=== PATIENT | female | born 1985 | race Caucasian/White ===

== ENCOUNTER 2017-02-04 19:40 | Emergency (ER) | payer SELFPAY ==
[~2017-02-04] VITALS: Ht 157.5 cm; Wt 81.6 kg
--- NOTE | 2017-02-04 20:41 | Urgent Treatment Center Report ---
History of Present Issue Date/Time Seen by Provider 02/04/172030 Visit Reason Pt arrived:Walked Presenting Problem:PT C/O PAIN IN RT SIDE OF NECK AFTER TURNING HER HEAD TOO QUICKLY AND HEARING A "POP" SOUND Location if Accident: Onset of symptoms date/time:/ or onset unknown for:MEDICAL HX UNKNOWN Have you (or family members/close friends) recently traveled outside the [place]? N If Yes, where/when: Have you had exposure to infectious disease within the past month? TB? Other? Specify: Patient state that she has history of neck and shoulder pain, State that her daughter fell on Tuesday and she turned her head quickly and she felt a "pop" states that she has felt tight in her shoulders and neck ever since States that she has been having muscle spasms and thought she better come in tonight and get checked ALLERGIES Coded Allergies: Penicillins (Mild, 02/04/17) History Medical History General CAD? No Angina: No ME: No Hypertension? No Hyperlipidemia? No CHF? No DVT? No PE? No COPD? No Asthma? No Anemia? No GERD? No Gastric ulcers? No GI Bleed? No Hernia? No Thyroid Problems? No Hypothyroidism? No CVA? No Seizures? No Diabetes? No Renal Insuffiency? No UTI? No Stones? No BPH? No GB Disease: No Nephritic Syndrome? No Asplenia? No Hepatitis? No Sickle Cell Disease? No Arthritis? No Migraines? No Cataracts? No Glaucoma? No MRSA? No HIV? No TB? No Anxiety? No Depression? No Cancer? No More? No Immunization HX DT/Tetanus Unknown Surgical Hx Previous Surgery?N Social History Smoking Hx Smoker: Never Smoker Tobacco: No Review of Systems All Other Systems Reviewed and Negative Musculoskeletal muscle pain, muscle stiffness, neck pain Physical Exam Vital Signs Vital Signs Date Time Temp Pulse Resp B/P Pulse O2 O2 Flow FiO2 Ox Delivery Rate 02/04 2046 18 02/05 2016 98.2 76 18 135/89 99 General Appearance normal appearance, WD/WN Respiratory Status Yes: trachea midline, chest symmetrical, non tender chest. No: respiratory distress. Lung Sounds bilateral: normal breath sounds, lungs clear. Cardiovascular normal exam, regular rate/rhythm Back muscle spasm, Pain and muscle spasm felt in upper shoulder area, has history of back problems State that she turned her head quickly on Tuesday and now having pain and stiffness in neck Neurologic alert, normal exam, oriented x 3 Medical Decision Making LABS/Meds/Orders Pt receiving controlled substance in ED? No Results/Orders Current Medication Orders Sig/Dominga Start time Last Medication Dose Route Stop Time Status Admin Ketorolac 60 MG ONCE ONE 02/04 2045 DC 02/04 Tromethamine IM 02/04 Ketorolac 0 .STK-MED ONE 02/04 2041 DC Tromethamine .ROUTE Progress [facility] Progress Notes 1 Comment Denies chance of [facility] Progress Notes 2 Comment Patient state that she does not want to wait for xray that felt like it was more muscle related. Patient aware of risks and benefits and still choose to not do xray Departure Departure Disposition DC Home or Self Care(routine) Clinical Impression Primary Impression: Muscle strain Secondary Impressions: Muscle spasm Condition STABLE Referrals Elda CUNNINGHAM,Nasir (Family): 3 Days-Call Office Patient Instructions DI for Muscle Spasm, DI for Muscle Strain, DI for Neck Pain Additional Instructions Take medication as prescribed Follow up with family doctor if pain persists Return if needed If you began to have numbness in the extremitities difficulty urinating or bowel go straight to the ER Discharge Counseling Counseled pt/family regarding diagnosis, medications/RX, home care, follow up needs Prescriptions Current Visit Scripts Ibuprofen (Ibuprofen 800MG) 800 MG PO QIDP PRN pain #30 TAB Cyclobenzaprine Hcl (Flexeril) 10 MG PO TID #15 TAB at 2058
--- NOTE | 2017-02-04 20:41 | Urgent Treatment Center Report ---
History of Present Issue Date/Time Seen by Provider 02/04/172030 Visit Reason Pt arrived:Walked Presenting Problem:PT C/O PAIN IN RT SIDE OF NECK AFTER TURNING HER HEAD TOO QUICKLY AND HEARING A "POP" SOUND Location if Accident: Onset of symptoms date/time:/ or onset unknown for:MEDICAL HX UNKNOWN Have you (or family members/close friends) recently traveled outside the [place]? N If Yes, where/when: Have you had exposure to infectious disease within the past month? TB? Other? Specify: Patient state that she has history of neck and shoulder pain, State that her daughter fell on Tuesday and she turned her head quickly and she felt a "pop" states that she has felt tight in her shoulders and neck ever since States that she has been having muscle spasms and thought she better come in tonight and get checked ALLERGIES Coded Allergies: Penicillins (Mild, 02/04/17) History Medical History General CAD? No Angina: No NC: No Hypertension? No Hyperlipidemia? No CHF? No DVT? No PE? No COPD? No Asthma? No Anemia? No GERD? No Gastric ulcers? No GI Bleed? No Hernia? No Thyroid Problems? No Hypothyroidism? No CVA? No Seizures? No Diabetes? No Renal Insuffiency? No UTI? No Stones? No BPH? No GB Disease: No Nephritic Syndrome? No Asplenia? No Hepatitis? No Sickle Cell Disease? No Arthritis? No Migraines? No Cataracts? No Glaucoma? No MRSA? No HIV? No TB? No Anxiety? No Depression? No Cancer? No More? No Immunization HX DT/Tetanus Unknown Surgical Hx Previous Surgery?N Social History Smoking Hx Smoker: Never Smoker Tobacco: No Review of Systems All Other Systems Reviewed and Negative Musculoskeletal muscle pain, muscle stiffness, neck pain Physical Exam Vital Signs Vital Signs Date Time Temp Pulse Resp B/P Pulse O2 O2 Flow FiO2 Ox Delivery Rate 02/04 2046 18 02/05 2016 98.2 76 18 135/89 99 General Appearance normal appearance, WD/WN Respiratory Status Yes: trachea midline, chest symmetrical, non tender chest. No: respiratory distress. Lung Sounds bilateral: normal breath sounds, lungs clear. Cardiovascular normal exam, regular rate/rhythm Back muscle spasm, Pain and muscle spasm felt in upper shoulder area, has history of back problems State that she turned her head quickly on Tuesday and now having pain and stiffness in neck Neurologic alert, normal exam, oriented x 3 Medical Decision Making LABS/Meds/Orders Pt receiving controlled substance in ED? No Results/Orders Current Medication Orders Sig/Dominga Start time Last Medication Dose Route Stop Time Status Admin Ketorolac 60 MG ONCE ONE 02/04 2045 DC 02/04 Tromethamine IM 02/04 Ketorolac 0 .STK-MED ONE 02/04 2041 DC Tromethamine .ROUTE Progress [facility] Progress Notes 1 Comment Denies chance of [facility] Progress Notes 2 Comment Patient state that she does not want to wait for xray that felt like it was more muscle related. Patient aware of risks and benefits and still choose to not do xray Departure Departure Disposition DC Home or Self Care(routine) Clinical Impression Primary Impression: Muscle strain Secondary Impressions: Muscle spasm Condition STABLE Referrals Elda CUNNINGHAM,Nasir (Family): 3 Days-Call Office Patient Instructions DI for Muscle Spasm, DI for Muscle Strain, DI for Neck Pain Additional Instructions Take medication as prescribed Follow up with family doctor if pain persists Return if needed If you began to have numbness in the extremitities difficulty urinating or bowel go straight to the ER Discharge Counseling Counseled pt/family regarding diagnosis, medications/RX, home care, follow up needs Prescriptions Current Visit Scripts Ibuprofen (Ibuprofen 800MG) 800 MG PO QIDP PRN pain #30 TAB Cyclobenzaprine Hcl (Flexeril) 10 MG PO TID #15 TAB at 2058
[2017-02-04 21:51] VITALS: BP 135/89
== END 2017-02-04 21:51 | disposition home or self-care (01) ==
LOC: UTC 19:40
DX: S16.1XXA Strain of muscle, fascia and tendon at neck level, initial encounter (principal); M62.838 Other muscle spasm; X50.9XXA Other and unspecified overexertion or strenuous movements or postures, initial encounter; Y92.9 Unspecified place or not applicable